=== PATIENT | male | born 1950 | race Caucasian/White ===

== ENCOUNTER → 2016-11-25 | Outpatient (CLI) | payer OTHER ==
--- NOTE | 2016-11-25 10:18 | DIAGNOSTIC IMAGING REPORT ---
RENAL ULTRASOUND HISTORY: Follow-up KIDNEY CYST COMPARISON: Abdomen and pelvis CT 11/27/2015. FINDINGS: Right kidney: 12.6 cm. No hydronephrosis. Normal corticomedullary differentiation and cortical thickness. Left kidney: 12.2 cm. No hydronephrosis. Normal corticomedullary differentiation and cortical thickness. There is a 3.3 x 2.9 cm cyst within the upper pole. This may contain a few internal echoes. However, still shows a thin wall and posterior acoustic enhancement. Therefore, this is consistent with a simple versus minimally complex cyst. Bladder: No bladder wall thickening. The bilateral ureteral jets were identified. The bladder is mildly distended. IMPRESSION: 1. Normal right kidney. 2. A 3.3 x 2.9 cm cyst within the upper pole the left kidney. This represents a simple cyst versus a minimally complex cyst 3. Mildly distended bladder. Electronically signed by: Wicho Mclean M.D. 11/25/2016 10:16 AM Dictated Date/Time: 11/25/2016 10:10 AM
--- NOTE | 2016-12-10 14:37 | CODING QUERY MEDICAL NECESSITY ---
CQSUPPORTING DIAGNOSIS NEEDED A supporting diagnosis is required for the test/procedure performed on this patient in order for us to be reimbursed by the patient's insurance. Please provide a supporting diagnosis for the following test/procedure listed below next to the test name along with your signature. *If there is no additional diagnosis for this patient that would support the following test/procedure please document that below next to the test/procedure. Test(s)/Procedure(s) that require a supporting diagnosis: DOS 11/25/16 PROSTATE SPECIFIC Provider Signature: Date: Thank you Brenda Bosch [employer] Once completed, please kindly fax back to [phone] For questions please call [phone]
== END | disposition home or self-care (01) ==
LOC: C.ULTRBC 09:22
PROVIDERS: ATTEND Urology
DX: Z00.00 Encounter for general adult medical examination without abnormal findings (principal); N28.1 Cyst of kidney, acquired; N40.1 Benign prostatic hyperplasia with lower urinary tract symptoms

== ENCOUNTER → 2017-12-01 | Outpatient (CLI) | payer OTHER ==
[2017-12-01 12:30] LABS: BLOOD UREA NITROGEN 18 mg/dl (7-18); CREATININE 0.95 mg/dl (0.60-1.40)
== END | disposition home or self-care (01) ==
LOC: C.LAB1850 10:53
PROVIDERS: ATTEND Urology
DX: N41.9 Inflammatory disease of prostate, unspecified (principal)